=== PATIENT | male | born 1940 | race Caucasian/White ===

== ENCOUNTER → 2020-12-17 | Outpatient (CLI) | payer OTHER ==
[~2020-12-17] MED LIST: FLONASE 0.05% N16 GM; LASIX TAB 20 MG20 MG PO; METOPROLOL TART25 MG PO; NORVASC5 MG PO; POTASSIUM CHLO10 MEQ PO; SIMVASTATIN20 MG PO; SYNTHROID88 MCG PO; WARFARIN SODIUM6 MG PO
[2020-12-17 12:07] LABS: HEMOGLOBIN 16.2 gm/dl (14.0-17.5); RED BLOOD COUNT 5.32 M/UL (4.20-5.50); WHITE BLOOD COUNT 6.5 K/UL (4.5-11.0)
== END ==
LOC: LAB 10:31
PROVIDERS: Internal Medicine Interventional Cardiology
DX: I11.0 Hypertensive heart disease with heart failure (principal); I50.32 Chronic diastolic (congestive) heart failure; I48.19 Other persistent atrial fibrillation; I27.20 Pulmonary hypertension, unspecified; Z79.01 Long term (current) use of anticoagulants
CPT/HCPCS: 36415; 80048; 85025; 85610; 85730

== ENCOUNTER → 2020-12-19 | Outpatient (CLI) | payer MEDICARE | LOC: CATH 07:05 | DX: I25.118 Atherosclerotic heart disease of native coronary artery with other forms of angina pectoris (principal); I34.0 Nonrheumatic mitral (valve) insufficiency; I11.0 Hypertensive heart disease with heart failure; I50.32 Chronic diastolic (congestive) heart failure; I27.20 Pulmonary hypertension, unspecified; I48.19 Other persistent atrial fibrillation; E78.5 Hyperlipidemia, unspecified; Z79.01 Long term (current) use of anticoagulants; Z79.899 Other long term (current) drug therapy; Z87.891 Personal history of nicotine dependence | CPT/HCPCS: 99152; C1769; C1887; C1894; J1644; J2250; J3010; J7030; Q9965 ==